=== PATIENT | female | born 1995 | race Caucasian/White ===

== ENCOUNTER → 2020-02-02 | Outpatient (CLI) | payer OTHER | LOC: COL.RAD 08:15 | DX: M51.26 Other intervertebral disc displacement, lumbar region (principal); M51.27 Other intervertebral disc displacement, lumbosacral region | CPT/HCPCS: A9585 ==

== ENCOUNTER → 2020-06-09 | Outpatient (CLI) | payer OTHER | LOC: COL.RAD 11:33 | DX: R25.1 Tremor, unspecified (principal) ==